=== PATIENT | male | born 1990 | race Caucasian/White ===

== ENCOUNTER 2017-10-02 22:25 | Emergency (ER) | payer MEDICAID ==
[2017-10-02 22:26] VITALS: BMI 23.5
[2017-10-02 22:36] VITALS: BP 127/71; PULSE 89; RESP 16; TEMP 98.5; O2SAT 98
--- NOTE | 2017-10-02 22:55 | ED PDOC ---
HPI: Psych/Substance Abuse Chief Complaint (Nursing): Substance Abuse ED Caveat: Intoxicated History Per: Patient Onset/Duration Of Symptoms: Hrs Current Symptoms Are (Timing): Still Present Suicide/Self Injury Attempted (Context): None Modifying Factor(s): None Associated Symptoms: denies: Anger, Anxiety, Agitation, Depression, Paranoia, Suicidal Thoughts, Suicidal Plan Additional Complaint(s): Patient admits to smoking PCP today, brought to ER for erratic behavior, however patient now calm. Denies co-ingestion. Denies SI/HI. Pt. A&O x 3, calm, cooperative. Past Medical History Reviewed: Historical Data, Nursing Documentation, Vital Signs Vital Signs: Last Vital Signs Temp 98.5 F 10/02/17 22:34 Pulse 89 10/02/17 22:34 Resp 16 10/02/17 22:34 BP 127/71 10/02/17 22:34 Pulse Ox 98 10/02/17 22:34 - Medical History PMH: No Chronic Diseases - Family History Family History: States: Unknown Family Hx - Immunization History Hx Tetanus Toxoid Vaccination: No Hx Influenza Vaccination: No Hx Pneumococcal Vaccination: No - Home Medications Home Medications: Ambulatory Orders Medication Instructions Recorded No Known Home Med 10/13/15 - Allergies Allergies/Adverse Reactions: Allergies Allergy/AdvReac Type Severity Reaction Status Date / Time No Known Allergies Allergy Verified 10/02/17 22:34 Review of Systems ROS Statement: Except As Marked, All Systems Reviewed And Found Negative Physical Exam - Reviewed Nursing Documentation Reviewed: Yes Vital Signs Reviewed: Yes - Physical Exam Appears: Positive for: Well, Non-toxic, No Acute Distress Head Exam: Positive for: ATRAUMATIC, NORMAL INSPECTION, NORMOCEPHALIC Skin: Positive for: Normal Color, Warm, DRY Eye Exam: Positive for: EOMI, Normal appearance, PERRL ENT: Positive for: Normal ENT Inspection Neck: Positive for: Normal, Painless ROM Cardiovascular/Chest: Positive for: Regular Rate, Rhythm Respiratory: Positive for: CNT, Normal Breath Sounds Gastrointestinal/Abdominal: Positive for: Normal Exam, Bowel Sounds, Soft Back: Positive for: Normal Inspection Extremity: Positive for: Normal ROM Neurologic/Psych: Positive for: Alert, middle school volleyball coach II-XII, Oriented, Gait (normal). Negative for: Motor/Sensory Deficits, Aphasia - ECG O2 Sat by Pulse Oximetry: 98 Pulse Ox Interpretation: Normal Medical Decision Making Medical Decision Making: Patient has no SI/HI, calm, cooperative, with completely normal vital signs. Will d/c home. Disposition - Clinical Impression Clinical Impression: PCP abuse - Disposition Disposition: Routine/Home Disposition Time: 22:55 Condition: STABLE Instructions: Polysubstance Abuse (ED)
== END 2017-10-02 22:56 | disposition home or self-care (01) ==
LOC: H.ER 22:25
DX: F19.10 Other psychoactive substance abuse, uncomplicated (principal)

== ENCOUNTER 2017-12-23 19:24 | Emergency (ER) | payer MEDICAID ==
[2017-12-23 19:24] VITALS: BMI 23.5
[2017-12-23 19:32] VITALS: BP 135/74; PULSE 98; RESP 16; TEMP 98.2; O2SAT 96
--- NOTE | 2017-12-23 19:54 | ED PDOC ---
HPI: Chest Pain Chief Complaint (Nursing): Chest Pain History Per: Patient History/Exam Limitations: no limitations Onset/Duration Of Symptoms: Hrs Current Symptoms Are (Timing): Still Present Additional Complaint(s): Hx of PCP abuse, alcohol abuse, cocaine abuse presenting with chest pain, states it started at 530PM while smoking PCP. States that it is L sided, near the axilla, and feels like a "pulled muscle". Denies shortness of breath, sweats , cough, fever, or other current symptoms. States he was trying to see his PCP Dr. Cuadra for constipation and occasional abdominal pain but states he wanted to smoke PCP instead of scheduling an appointment, denies abdominal pain currently. States his diet is not rich in vegetables nor healthy foods. Denies SI/HI. Past Medical History Reviewed: Historical Data, Nursing Documentation, Vital Signs Vital Signs: Last Vital Signs Temp 98.2 F 12/23/17 19:29 Pulse 98 H 12/23/17 19:29 Resp 16 12/23/17 19:29 BP 135/74 12/23/17 19:29 Pulse Ox 96 12/23/17 19:56 - Family History Family History: States: Unknown Family Hx - Social History Current smoker - smoking cessation education provided: Yes Alcohol: < 2 Drinks/Day Drugs: Cannabis, Cocaine, Other (PCP) - Immunization History Hx Tetanus Toxoid Vaccination: No Hx Influenza Vaccination: No Hx Pneumococcal Vaccination: No - Home Medications Home Medications: Ambulatory Orders Medication Instructions Recorded No Known Home Med 10/13/15 - Allergies Allergies/Adverse Reactions: Allergies Allergy/AdvReac Type Severity Reaction Status Date / Time No Known Allergies Allergy Verified 12/23/17 19:29 Review of Systems ROS Statement: Except As Marked, All Systems Reviewed And Found Negative Cardiovascular: Positive for: Chest Pain Physical Exam - Reviewed Nursing Documentation Reviewed: Yes - Physical Exam Appears: Positive for: Well, Non-toxic, No Acute Distress Head Exam: Positive for: ATRAUMATIC, NORMAL INSPECTION, NORMOCEPHALIC Skin: Positive for: Normal Color, Warm, DRY Eye Exam: Positive for: EOMI, Normal appearance, PERRL ENT: Positive for: Normal ENT Inspection Neck: Positive for: Normal, Painless ROM Cardiovascular/Chest: Positive for: Regular Rate, Rhythm Respiratory: Positive for: CNT, Normal Breath Sounds Gastrointestinal/Abdominal: Positive for: Normal Exam, Soft Back: Positive for: Normal Inspection Extremity: Positive for: Normal ROM Neurologic/Psych: Positive for: Alert, Oriented - ECG ECG: Positive for: Interpreted By Me, Viewed By Me ECG Rhythm: Positive for: Normal QRS, Normal ST Segment, Sinus Rhythm, Atrial Flutter O2 Sat by Pulse Oximetry: 96 Pulse Ox Interpretation: Normal Medical Decision Making Medical Decision MakinPM A/P: Hx of drug abuse presenting with chest pain -patient is very well appearing at this time with normal vitals and normal EKG -cause of pain is likely unrelated to heart or lungs, most likely related to PCP abuse, given that patient has history of chest/muscle pain with usage of PCP -will give ibuprofen and PCP and re-eval patient afterwards 930PM -Patient is feeling better, advised to stop doing drugs -Outpatient resources provided, return precautions given Disposition - Clinical Impression Clinical Impression: PCP abuse, Atypical chest pain - Patient ED Disposition Is Patient to be Admitted: No - Disposition [facility]errals[facility] Disposition: Routine/Home Disposition Time: 21:31 Condition: IMPROVED Forms: [employer] (Spanish)
== END 2017-12-23 22:25 | disposition home or self-care (01) ==
LOC: H.ER 19:24
DX: R07.89 Other chest pain (principal); F16.10 Hallucinogen abuse, uncomplicated; F14.10 Cocaine abuse, uncomplicated; F17.200 Nicotine dependence, unspecified, uncomplicated; K59.00 Constipation, unspecified

== ENCOUNTER 2018-01-26 01:35 | Emergency (ER) | payer MEDICAID ==
[2018-01-26 01:35] VITALS: BMI 23.5
[2018-01-26 01:51] VITALS: BP 124/78; PULSE 78; RESP 16; TEMP 97.9; O2SAT 99
--- NOTE | 2018-01-26 03:39 | ED PDOC ---
HPI: Psych/Substance Abuse Time Seen by Provider: 01/26/18 02:00 Chief Complaint (Nursing): Substance Abuse Chief Complaint (Provider): Substance Abuse History Per: Patient, EMS History/Exam Limitations: no limitations Onset/Duration Of Symptoms: Other (prior to arrival) Current Symptoms Are (Timing): Still Present Additional Complaint(s): 27 y/o male with no significant pmhx brought in by [facility] due to PCP use. Patient is homeless and admits to using PCP. Patient has no medical complaints at this time. He denies any trauma, injury, or pain. Past Medical History Reviewed: Historical Data, Nursing Documentation, Vital Signs Vital Signs: Last Vital Signs Temp 97.9 F 01/26/18 01:49 Pulse 78 01/26/18 01:49 Resp 16 01/26/18 01:49 BP 124/78 01/26/18 01:49 Pulse Ox 99 01/26/18 01:49 - Medical History PMH: No Chronic Diseases - Surgical History Surgical History: No Surg Hx - Family History Family History: States: Unknown Family Hx - Social History Drugs: Other (PCP) - Immunization History Hx Tetanus Toxoid Vaccination: No Hx Influenza Vaccination: No Hx Pneumococcal Vaccination: No - Home Medications Home Medications: Ambulatory Orders Medication Instructions Recorded Naproxen [Naprosyn] 500 mg PO BID #30 tablet 12/23/17 - Allergies Allergies/Adverse Reactions: Allergies Allergy/AdvReac Type Severity Reaction Status Date / Time No Known Allergies Allergy Verified 12/23/17 19:29 Review of Systems ROS Statement: Except As Marked, All Systems Reviewed And Found Negative Physical Exam - Reviewed Nursing Documentation Reviewed: Yes Vital Signs Reviewed: Yes - Physical Exam Comments: GENERAL APPEARANCE: Patient is awake, alert, oriented x 3, in no acute distress. SKIN: Warm, dry; (-) cyanosis HEAD: (-) scalp swelling, (-) scalp tenderness. EYES: (-) conjunctival pallor, (-) scleral icterus, (-) nystagmus. ENMT: Mucous membranes moist. Airway patent: (-) stridor. NECK: (-) tenderness, (-) stiffness, (-) lymphadenopathy. CHEST AND RESPIRATORY: (-) rales, (-) rhonchi, (-) wheezes; breath sounds equal. ABDOMEN: Soft, (-) distention, (-) tenderness, (-) guarding. NEURO AND PSYCH: Mental status as above. Affect: flat oil exploration engineer: Intact. Pupils equal and reactive; EOMI; (-) facial asymmetry ; tongue and uvula midline. - ECG O2 Sat by Pulse Oximetry: 99 (RA) Pulse Ox Interpretation: Normal Medical Decision Making Medical Decision Making: Patient awake, alert, and oriented x3 with steady gait in ED. Patient remained for observation for 90 minutes. Patient continues to be awake, alert, oriented x3 with steady gait. Patient stable for discharge. Advised to follow up with the clinic in 1-2 days without fail. Return to the emergency room at any time for any new or worsening symptoms. Patient states he fully agrees with and understands discharge instructions. States that he agrees with the plan and disposition. Verbalized and repeated discharge instructions and plan. I have given the patient opportunity to ask any additional questions. Scribe Attestation: Documented by Horacio Ragland, acting as a scribe for Maribeth Tanner PA-C. Provider Scribe Attestation: All medical record entries made by the Scribe were at my direction and personally dictated by me. I have reviewed the chart and agree that the record accurately reflects my personal performance of the history, physical exam, medical decision making, and the department course for this patient. I have also personally directed, reviewed, and agree with the discharge instructions and disposition. Disposition - Clinical Impression Clinical Impression: PCP abuse - Patient ED Disposition Is Patient to be Admitted: No Counseled Patient/Family Regarding: Diagnosis, Need For Followup - Disposition Referrals: [facility] [Outside] Disposition: Routine/Home Disposition Time: 03:00 Condition: STABLE Instructions: Drug Abuse and Drug Addiction (DC) Forms: [employer] (Niuean) - PA / COLLEGE DEAN / Resident Statement MD/DO has reviewed & agrees with the documentation as recorded.
== END 2018-01-26 03:50 | disposition home or self-care (01) ==
LOC: H.ER 01:35
DX: F16.10 Hallucinogen abuse, uncomplicated (principal)

== ENCOUNTER 2018-05-09 11:26 | Emergency (ER) | payer MEDICAID ==
[2018-05-09 11:26] VITALS: BMI 21.9
[2018-05-09 11:29] VITALS: RESP 18
--- NOTE | 2018-05-09 11:42 | ED PDOC ---
HPI: Psych/Substance Abuse Time Seen by Provider: 05/09/18 11:34 Chief Complaint (Provider): Possible Substance Abuse History Per: Patient History/Exam Limitations: no limitations Associated Symptoms: denies: Suicidal Thoughts (or homicidal) Additional Complaint(s): 28 years old male brought by EMS after he was found in street. Patient admits to using PCP and denies any suicidal or homicidal ideation. PMD: non provided Past Medical History Reviewed: Historical Data, Nursing Documentation, Vital Signs Vital Signs: Last Vital Signs Temp 100.7 F H 05/09/18 11:28 Pulse 112 H 05/09/18 11:28 Resp 18 05/09/18 11:28 BP 126/67 05/09/18 11:28 Pulse Ox 95 05/09/18 11:28 - Medical History PMH: No Chronic Diseases - Surgical History Surgical History: No Surg Hx - Family History Family History: States: Unknown Family Hx - Immunization History Hx Tetanus Toxoid Vaccination: No Hx Influenza Vaccination: No Hx Pneumococcal Vaccination: No - Home Medications Home Medications: Ambulatory Orders Medication Instructions Recorded Cephalexin 500 mg PO Q4 04/23/18 - Allergies Allergies/Adverse Reactions: Allergies Allergy/AdvReac Type Severity Reaction Status Date / Time No Known Allergies Allergy Verified 04/23/18 05:39 Review of Systems ROS Statement: Except As Marked, All Systems Reviewed And Found Negative Psych: Negative for: Suicidal ideation (or homicidal) Physical Exam - Reviewed Nursing Documentation Reviewed: Yes Vital Signs Reviewed: Yes - Physical Exam Appears: Positive for: No Acute Distress Head Exam: Positive for: ATRAUMATIC, NORMOCEPHALIC Skin: Positive for: Normal Color, Warm, Dry Eye Exam: Positive for: Normal appearance, EOMI, PERRL Neck: Positive for: Supple Cardiovascular/Chest: Positive for: Regular Rate, Rhythm. Negative for: Murmur Respiratory: Positive for: Normal Breath Sounds. Negative for: Respiratory Distress Gastrointestinal/Abdominal: Positive for: Normal Exam, Soft. Negative for: Tenderness Back: Positive for: Normal Inspection Extremity: Positive for: Normal ROM. Negative for: Tenderness, Swelling Neurologic/Psych: Positive for: Alert, Oriented (x3). Negative for: Motor/ Sensory Deficits - ECG O2 Sat by Pulse Oximetry: 95 (RA) Pulse Ox Interpretation: Normal - Progress Re-evaluation Time: 12:02 Condition: Improved (Pt awaqke alert oriented x 3 Jeffery SI/HI. Wishes to leave) Medical Decision Making Medical Decision Making: Scribe Attestation: Documented by Sravanthi Sullivan, acting as a scribe for Kirk Schuster MD. Provider Scribe Attestation: All medical record entries made by the Scribe were at my direction and personally dictated by me. I have reviewed the chart and agree that the record accurately reflects my personal performance of the history, physical exam, medical decision making, and the department course for this patient. I have also personally directed, reviewed, and agree with the discharge instructions and disposition. Disposition - Clinical Impression Clinical Impression: PCP abuse - Patient ED Disposition Is Patient to be Admitted: No Counseled Patient/Family Regarding: Diagnosis, Need For Followup - Disposition Referrals: [facility] [Outside] Disposition: Routine/Home Disposition Time: 12:03 Condition: FAIR Instructions: Drug Abuse and Drug Addiction (DC)
[2018-05-09 12:50] VITALS: BP 122/76; PULSE 76; TEMP 98; O2SAT 100
== END 2018-05-09 12:44 | disposition home or self-care (01) ==
LOC: H.ER 11:26
DX: F16.10 Hallucinogen abuse, uncomplicated (principal)